=== PATIENT | female | born 1990 | race Caucasian/White ===

== ENCOUNTER → 2016-09-12 | Outpatient (CLI) | payer MEDICAID | LOC: RAD 10:26 | PROVIDERS: ATTEND Nurse Practitioner Women's Health | DX: Z34.81 Encounter for supervision of other normal pregnancy, first trimester (principal) | CPT/HCPCS: 76801 ==

== ENCOUNTER 2016-11-12 06:48 | Emergency (ER) | payer MEDICAID ==
[2016-11-12 06:59] VITALS: BP 121/67
--- NOTE | 2016-11-12 08:42 | ER Document Report ---
HPI - HPI Patient complains to provider of: pinkeye right eye yesterday Onset: Yesterday - Yesterday Onset/Duration: Gradual Pain Level: 2 Context: 26-year-old 5 months noncontact lens wearer female is complaining of red right eye since yesterday with crusty drainage this morning. She read online that a red eye could be sign of chlamydia and that's the only reason why she wants to be tested for STDs. No vaginal bleeding or discharge that has a bad smell. No abdominal pain. - CARDIOVASCULAR Cardiovascular: DENIES: Chest pain - REPRODUCTIVE Reproductive: DENIES: : - DERM Skin Color: Normal, [place] Past Medical History - Social History Smoking Status: Never Smoker Family History: None Patient has suicidal ideation: No Patient has homicidal ideation: No Renal/ Medical History: Denies: Hx Peritoneal Dialysis Surgical Hx: Negative - Immunizations Hx Diphtheria, Pertussis, Tetanus Vaccination: Yes Vertical Provider Document - CONSTITUTIONAL Agree With Documented VS: Yes Exam Limitations: No Limitations - INFECTION CONTROL TRAVEL OUTSIDE OF THE [place] IN LAST 30 DAYS: No - HEENT HEENT: Conjuctival Injection - Right, Normocephalic, PERRLA. negative: Pharyngeal Erythema, Tympanic Membrane Red Notes: No floor seen uptake, no foreign body - NECK Neck: Supple. negative: Lymphadenopathy-Left, Lymphadenopathy-Right - RESPIRATORY Respiratory: Breath Sounds Normal, No Respiratory Distress O2 Sat by Pulse Oximetry: 99 - CARDIOVASCULAR Cardiovascular: Regular Rate, Regular Rhythm - GI/ABDOMEN Gastrointestinal: Abdomen Soft, Abdomen Non-Tender Notes: Gravid uterus, heart tones 155 - MUSCULOSKELETAL/EXTREMETIES Musculoskeletal/Extremeties: YOEL BROWNING - NEURO Level of Consciousness: Awake - DERM Integumentary: Warm, Dry Course - Re-evaluation Re-evalutation: 11/12/16 09:56 - Vital Signs Vital signs: Temp Pulse Resp BP Pulse Ox 97.8 F 87 16 121/67 99 11/12/16 06:57 11/12/16 06:57 11/12/16 06:57 11/12/16 06:57 11/12/16 06:57 Discharge - Discharge Clinical Impression: right eye conjunctivitis, viable Condition: Good Disposition: HOME, SELF-CARE Instructions: Conjunctivitis ([facility]), Antibiotic Therapy ([facility]), Topical Erythromycin ([facility]) Additional Instructions: Call me at [phone] for the GC and Chlamydia test results Return to the emergency room any worsening of the symptoms See equity director if pink eye persists Please complete the patient satisfaction survey if you get one, and return it.. If you do not receive a survey, then you can go to the [facility] website, [email or web address] and place your comments about your very good care. Thank you very much. It was a pleasure being your medical provider today. Prescriptions: Erythromycin Base [Erythromycin] 1 applic OS QID #1 tub Referrals: MELODY SARGENT MD [ACTIVE STAFF] - Follow up as needed
[2016-11-12 12:21] LABS: CHLAM PCR NOT DETECTED (NOT DETECT)
== END 2016-11-12 10:31 | disposition home or self-care (01) ==
LOC: ER 06:48
DX: O26.91 Pregnancy related conditions, unspecified, first trimester (principal); H10.9 Unspecified conjunctivitis
CPT/HCPCS: 87491; 87591; 99283

== ENCOUNTER 2017-03-11 07:54 | Outpatient (CLI) | payer MEDICAID ==
[2017-03-11 09:23] LABS: APPEARANCE,URINE CLEAR; BILIRUBIN,URINE NEGATIVE (NEGATIVE); GLUCOSE, URINE NEGATIVE (NEGATIVE); KETONES,URINE NEGATIVE (NEGATIVE); LEUKOCYTE ESTERASE,URINE NEGATIVE (NEGATIVE); NITRITE,URINE NEGATIVE (NEGATIVE); PROTEIN,URINE NEGATIVE (NEGATIVE); URINE SPECIFIC GRAVITY 1.023
--- NOTE | 2017-03-11 09:36 | Non Stress Test Report ---
Non Stress Test Datetime Report Generated by CPN: 03/11/2017 09:35 DEMOGRAPHIC EGA NST: 36.4 INDICATION Indication for Study: Ordered by Provider MONITORING Monitor Explained: Monitor Explained; Test Explained; Patient Verbalized Understanding Time on Monitor: 03/11/2017 08:37 Time off Monitor: 03/11/2017 09:30 NST Duration: 53 NST INTERVENTIONS NST Interventions: PO Hydration; Reposition Patient Physician Notified NST: H. Manan, CNM BABY A: [id number] BABY A Movement : Present Contraction Frequency : Occassional FHR Baseline : 125 Accelerations : 15X15 Decelerations : None Variability : Moderate 6-25bpm NST Review: Meets Criteria for Reactive NST NST Review and Verified By : Rosa Alas RNC NST Results: Reactive NST REPORT Report Trigger: Send Report
[2017-03-11 09:38] LABS: AMNISURE (ROM) NEGATIVE (NEGATIVE)
[2017-03-11 09:44] LABS: URINE BARBITURATES SCREEN NEGATIVE; URINE METHADONE SCREEN NEGATIVE; URINE OPIATES LOW NEGATIVE; URINE PHENCYCLIDINE SCREEN NEGATIVE
== END 2017-03-11 09:57 | disposition home or self-care (01) ==
LOC: LC 07:54
PROVIDERS: ATTEND Specialist
PROC: 4A1HXCZ Monitoring of Products of Conception, Cardiac Rate, External Approach (ICD-10-PCS; principal; 2017-03-11)
DX: O47.03 False labor before 37 completed weeks of gestation, third trimester (principal); Z3A.36 36 weeks gestation of pregnancy
CPT/HCPCS: 59025; 80307; 81005; 84112

== ENCOUNTER 2017-03-26 06:47 | Inpatient (IN) | payer MEDICAID ==
[2017-03-26 07:24] LABS: AMNISURE (ROM) POSITIVE (NEGATIVE)
[2017-03-26 08:10] LABS: APPEARANCE,URINE CLEAR; BILIRUBIN,URINE NEGATIVE (NEGATIVE); GLUCOSE, URINE NEGATIVE (NEGATIVE); KETONES,URINE NEGATIVE (NEGATIVE); LEUKOCYTE ESTERASE,URINE NEGATIVE (NEGATIVE); NITRITE,URINE NEGATIVE (NEGATIVE); PROTEIN,URINE NEGATIVE (NEGATIVE); URINE SPECIFIC GRAVITY 1.006; UROBILINOGEN,URINE NEGATIVE mg/dL (<2.0)
[2017-03-26 08:40] LABS: URINE BARBITURATES SCREEN NEGATIVE; URINE METHADONE SCREEN NEGATIVE; URINE OPIATES LOW NEGATIVE; URINE PHENCYCLIDINE SCREEN NEGATIVE
[2017-03-26 08:47] LABS: ABSOLUTE EOSINOPHILS # (AUTO) 0.1 10^3/uL (0.0-0.6); ABSOLUTE LYMPHOCYTES (AUTO) 1.8 10^3/uL (0.5-4.7); ABSOLUTE MONOCYTES (AUTO) 1.1 10^3/uL (0.1-1.4); ABSOLUTE NEUT (AUTO) 8.8 10^3/uL (1.7-8.2); BASOPHILS % (AUTO) 0.4 % (0-2); EOSINOPHILS % (AUTO) 1.1 % (0-6); HEMATOCRIT 31.3 % (36.0-47.0); HEMOGLOBIN 10.2 g/dL (12.0-15.5); HGB HCT DIFFERENCE -0.7; LYMPHOCYTES % (AUTO) 15.4 % (13-45); MEAN CORPUSCULAR HEMOGLOBIN 25.9 pg (27.0-33.4); MEAN CORPUSCULAR HGB CONC 32.5 g/dL (32.0-36.0); MEAN CORPUSCULAR VOLUME 80 fl (80-97); MONOCYTES % (AUTO) 9.3 % (3-13); RED BLOOD COUNT 3.92 10^6/uL (3.72-5.28); RED CELL DISTRIBUTION WIDTH 16.2 % (11.5-14.0); SEGMENTED NEUTROPHILS % (AUTO) 73.8 % (42-78); WHITE BLOOD COUNT 11.9 10^3/uL (4.0-10.5)
[2017-03-26] MEDS ORDERED: PENICILLIN G-K 5 MILLION UNIT VIAL IV ONE (09:24)
[2017-03-26] MEDS ORDERED: PENICILLIN G-K 5 MILLION UNIT VIAL ONE ×4 (09:31→21:11)
[2017-03-26] MEDS: PENICILLIN G-K 5 MILLION UNIT VIAL IV SCH ×3 (13:39→21:16)
[2017-03-26] MEDS ORDERED: EPHEDRINE SULFATE INJ 50 MG/1 ML AMPULE IV PRN (23:26)
[2017-03-26] MEDS ORDERED: DIPHENHYDRAMINE HCL 50 MG/ML VIAL IV PRN (23:26)
[2017-03-26] MEDS ORDERED: CITRIC ACID/SODIUM CITRATE ORAL SOLN 15 ML UDCUP PO PRN (23:26)
[2017-03-26] MEDS ORDERED: BENZOIN/ALOE VERA/STORAX/TOLU TINCTURE 60 ML TP PRN (23:26)
[2017-03-26] MEDS ORDERED: FENTANYL/BUPIVACAINE/NS/PF 200 MCG/100 ML RTUINJ EPI PRN (23:26)
[2017-03-26] MEDS ORDERED: BUPIVACAINE HCL 0.25 % INJ/PF (2.5 MG/1 ML) 30 ML VIAL INFIL ONE (23:26)
[2017-03-26] MEDS ORDERED: RINGERS SOLUTION,LACTATED 1,000 ML IV PRN (23:28)
[2017-03-26] MEDS: RINGERS SOLUTION,LACTATED 1,000 ML IV PRN ×2 (23:42→23:56)
[2017-03-26] MEDS ORDERED: MISOPROSTOL 0.2 MG TABLET ONE (23:47)
[2017-03-26] MEDS ORDERED: FENTANYL/BUPIVACAINE/NS/PF 200 MCG/100 ML RTUINJ EPI ONE (23:48)
[2017-03-26] MEDS ORDERED: EPHEDRINE SULFATE INJ 50 MG/1 ML AMPULE ONE (23:48)
[2017-03-26] MEDS ORDERED: OXYTOCIN/NORMAL SALINE 20 UNIT/1,000 ML RTUINJ ONE (23:48)
[2017-03-26] MEDS ORDERED: LIDOCAINE 1% INJ-PF (10 MG/ML) 30 ML SDV ONE (23:48)
[2017-03-26] MEDS ORDERED: BUPIVACAINE HCL 0.25 % INJ/PF (2.5 MG/1 ML) 30 ML VIAL ONE (23:48)
[2017-03-27] MEDS ORDERED: PENICILLIN G-K 5 MILLION UNIT VIAL ONE (00:56)
[2017-03-27] MEDS: PENICILLIN G-K 5 MILLION UNIT VIAL IV SCH (01:28)
[2017-03-27] MEDS ORDERED: PROMETHAZINE HCL INJ 25 MG/1 ML VIAL IV PRN (03:41)
[2017-03-27] MEDS ORDERED: DIBUCAINE 1% OINTMENT 28 GM TP PRN (03:41)
[2017-03-27] MEDS ORDERED: DIPHENHYDRAMINE HCL 25 MG CAPSULE PO PRN (03:41)
[2017-03-27] MEDS ORDERED: MAGNESIUM HYDROXIDE SUSP 30 ML UDCUP PO PRN (03:41)
[2017-03-27] MEDS ORDERED: ACETAMINOPHEN WITH CODEINE #3 TABLET PO PRN ×2 (03:41)
[2017-03-27] MEDS ORDERED: OXYTOCIN/NORMAL SALINE 1,000 ML IV PRN (03:41)
[2017-03-27] MEDS ORDERED: DIPH/PERTUSS(ACELL)/TETANUS VAC/PF 0.5 ML SYR (>=10YO) IM PRN (03:41)
[2017-03-27] MEDS ORDERED: PROMETHAZINE HCL 25 MG SUPP.RECT PR PRN (03:41)
[2017-03-27] MEDS ORDERED: MEASLES,MUMPS&RUBELLA VACC/PF 0.5 ML VIAL SUBCUT PRN (03:41)
[2017-03-27] MEDS ORDERED: ACETAMINOPHEN 650 MG SUPP.RECT PR PRN (03:41)
[2017-03-27] MEDS ORDERED: GLYCERIN/WITCH HAZEL LEAF 1 EACH MED..PAD TP PRN (03:41)
[2017-03-27] MEDS ORDERED: BENZOCAINE/MENTHOL AEROSOL SPRAY 56 ML TOP PRN (03:41)
[2017-03-27] MEDS ORDERED: PROMETHAZINE HCL 25 MG TABLET PO PRN (03:41)
[2017-03-27] MEDS ORDERED: ZOLPIDEM TARTRATE 5 MG TABLET PO PRN (03:41)
[2017-03-27] MEDS ORDERED: PSEUDOEPHEDRINE HCL 30 MG TABLET PO PRN (03:41)
[2017-03-27] MEDS ORDERED: NA PHOS,M-B/NA PHOS,DI-BA (ADULT) 133 ML ENEMA PR PRN (03:41)
[2017-03-27] MEDS ORDERED: IBUPROFEN 800 MG TABLET ONE (04:38)
[2017-03-27] MEDS: IBUPROFEN 800 MG TABLET PO SCH ×3 (04:45→15:39)
--- NOTE | 2017-03-27 05:07 | Admission Physical ---
Datetime Report Generated by CPN: 03/27/2017 05:07 CURRENT ADMISSION Hx Assessment: The History has been Reviewed and is Current Chief Complaint: Suspected Ruptured Membranes Indication for Induction: Not Applicable Admit Plan: Admit to Unit; Initiate Labor Protocol ALLERGIES Medication Allergies: No Medication Allergies: No Known Allergies (03/26/2017) Medication Allergies: No Known Allergies (03/11/2017) Medication Allergies: No Known Allergies (08/09/2016) Latex: No Latex Allergies Food Allergies: None OBSTETRICAL HISTORY EDC: 04/04/2017 00:00 : 5 Para: 1 Term: 1 : 0 SAB: 4 IAB: 0 Ectopic: 0 Livin Cesareans: 0 VBACs: 0 Multiple Births: 0 Gestational Diabetes: Yes Rh Sensitization: No Incompetent Cervix: No KAMILLA: No Infertility: No Uterine Anomaly: No IUGR: No Hx Previous C/S: No Macrosomia: No Hx Loss/Stillborn: No PIH: No Hx : No Placenta Previa/Abruption: No Depression/PP Depression: No PTL/PROM: No Post Hemorrhage: No Current Procedures: Ultrasound; NST Obstetrical History Comments: G1- GDM SEE RECORDS Alcohol: No Marijuana : No Cocaine: No Other Illicit Drugs: No Cigarettes: Current Everyday Smoker. [id number] Cigarette Frequency: < 5 per day Advised to Stop: Yes Cigarette Comments: Pt stated she smokes a cigarette every 2 wks MEDICAL HISTORY Diabetes Type: Gestational Diabetes PHYSICAL EXAM General: Normal HEENT: Deferred Neurologic: Normal Thyroid: Deferred Heart: Normal Lungs: Normal Breast: Deferred Back: Normal Abdomen: Normal Genitourinary Exam: Normal Extremities: Normal DTRs: Normal Pelvic Type: Adequate Physical Exam Comments: pelvis proven to 7lbs 15oz Vital Signs: Reviewed; Within Normal Limits VAGINAL EXAM Dilatation: 3 Effacement: 60 Station: -2 Contraction Comments: irregular MEMBRANES Membranes: Ruptured FETUS A EGA: 38.5 Monitoring: External US FHR- Baseline: 115 Variability: Moderate 6-25bpm Accelerations: 15X15 Admit Comment: 26yo O pos, Rubella immune, GBS pos @ 38w5d into L_D with SROM @ 0500am and positive amnisure on admission. hx significant for anemia with this and low TSH at NOB with normal T4. Pt. was a 1ppd smoker and stopped smoking after NOB. Hx also significant for GDM with first baby. Declines any interventions except for penicillin for GBS prophy at this time. Agreeable to discuss further augment at 12-18hrs since ruptured if not in active labor. Reports positive movement, denies bleeding or recent illness. PLANS FOR LABOR AND DELIVERY Labor and Delivery: None Pain Management: None Feeding Preference: Breast Benefit of Breast Feed Discussed: Yes Circumcision: No INFORMED CONSENT Assignment: DO Cooper Jung: with User ID: Saran : with User ID: [email or web address]
[2017-03-27] MEDS: FERROUS SULFATE 325 MG TABLET PO SCH ×2 (09:18→18:10)
[2017-03-27] MEDS: DOCUSATE SODIUM 100 MG CAPSULE PO SCH ×2 (09:18→18:06)
[2017-03-27] MEDS: PRENATAL VITAMIN W-O CA NO5/FE FUMARATE/FA CAPSULE PO SCH (09:18)
[2017-03-27] MEDS: FAMOTIDINE 20 MG TABLET PO SCH ×2 (09:18→22:53)
[2017-03-27] MEDS: SENNOSIDES/DOCUSATE 8.6-50 MG 1 EACH TABLET PO SCH (09:18)
--- NOTE | 2017-03-27 09:49 | PDOC PROGRESS REPORT ---
Subjective-OB Subjective: Post Delivery Day: 26 year old. Denies any needs at this time except fatigue and lack of sleep. Physical Exam (OB) Vital Signs: Temp Pulse Resp BP Pulse Ox 98.3 F 69 17 118/54 L 100 03/27/17 07:39 03/27/17 07:39 03/27/17 07:39 03/27/17 07:39 03/27/17 05:49 Intake & Output 03/26/17 03/27/17 03/28/17 06:59 06:59 06:59 Weight 65.6 kg - PIH/Pre-Eclampsia Clonus: Negative Headache: Absent Epigastric Pain: No Visual Changes: No - Lochia Lochia Amount: Small 10-25 ml Lochia Color: Rubra/Red - Abdomen Description: Round Hernia Present: No Bowel Sounds: Normoactive Flatus Presence: Absent Stool: No Fundal Description: Firm, Midline Fundal Height: u/u - u/2 Objective-Diagnostic Laboratory: 03/26/17 08:24
--- NOTE | 2017-03-27 15:25 | Delivery Summary ---
Del Sum A-C Datetime Report Generated by CPN: 03/27/2017 15:25 DELIVERY PERSONNEL DELIVERY PERSONNEL: [phone] DELIVERY PERSONNEL: [phone] Delivery Doctor:: Jean Mendez DO Labor and Delivery Nurse:: Marina Uriarte RNshingle weaver Nurse:: VALENTINO Dorman/JITNEY DRIVER: Denisha Olivares PUPIL PERSONNEL WORKER Additional Personnel: : Millie Delgado RN MATERNAL INFORMATION Delivery Anesthesia: Epidural Medications After Delivery: Pitocin Drip 20 Units/1000ml NSS Estimated Blood Loss (ml): 250 Maternal Complications: None Provider Comments: of viable male in CONNER position Placenat delievered spontaneous and intact with 3v cord Fundus firm LABOR SUMMARY EDC: 04/04/2017 00:00 No. Babies in Womb: 1 Attempted: No Labor Anesthesia: Epidural LABOR INFORMATION Reason for Induction: Not Applicable Onset of Labor: 03/26/2017 05:00 Complete Dilatation: 03/27/2017 02:48 Oxytocin: N/A Group B Beta Strep: Positive Antibiotics # of Doses: 5 Antibiotics Time of Last Dose: 0128 Name of Antibiotic Given: PCN G Steroids Given: None Reason Steroids Not Administered: Not Applicable MEMBRANES Membranes Rupture Method: Spontaneous Rupture of Membranes: 03/26/2017 05:00 Length of Rupture (hr): 21.88 Amniotic Fluid Color: Clear Amniotic Fluid Amount: Moderate Amniotic Fluid Odor: Normal STAGES OF LABOR Stage 1 hr: 21 Stage 1 min: 48 Stage 2 hr: 0 Stage 2 min: 5 Stage 3 hr: 0 Stage 3 min: 5 Total Time in Labor hr: 21 Total Time in Labor min: 58 VAGINAL DELIVERY Episiotomy: None Laceration Extension: First Degree Laceration Type: Periurethral Other Laceration: R _ L periurethral with repair Laceration Repair: Yes Laceration Repair Note: repaired with 3-0 chromic in usual fashion with good hemostasis Sponge Count Correct: N/A Sharps Count Correct: N/A CSECTION DELIVERY Primary Indication: N/A Secondary Indication: N/A CSection Incidence: N/A Labor: Labor Elective: N/A CSection Incision: N/A BABY A INFORMATION Delivery Date/Time: 03/27/2017 02:53 Method of Delivery: Vaginal Born in Route : No : N/A Forceps: N/A Vacuum Extraction: N/A Shoulder Dystocia : No PRESENTATION/POSITION BABY A Presentation: Cephalic Presentation: Cephalic Cephalic Presentation: Vertex Vertex Position: Right Occipital Anterior Breech Presentation: N/A PLACENTA INFORMATION BABY A Placenta Delivery Time : 03/27/2017 02:58 Placenta Method of Delivery: Spontaneous Placenta Status: Delivered SCORES BABY A Heart Rate 1 min: >100 bpm Resp Effort 1 min: Good Cry Reflex Irritability 1 min: Cough or Sneeze or Pulls Away Muscle Tone 1 min: Active Motion Color 1 min: Body [place], Extremities Blue Resuscitation Effort 1 min: Tactile Stimulation SCORE 1 MIN: 9 Heart Rate 5 min: >100 bpm Resp Effort 5 min: Good Cry Reflex Irritability 5 min: Cough or Sneeze or Pulls Away Muscle Tone 5 min: Active Motion Color 5 min: Completely [place] Resuscitation Effort 5 min: N/A SCORE 5 MIN: 10 INFORMATION BABY A Gestational Age at Delivery: 38.6 Gestational Status: Early Term- 37- 38.6 Weeks Outcome : Liveborn Condition : Stable Infant Sex: Male IDENTIFICATION BABY A Infant Verification Date/Time: 03/27/2017 03:04 ID Band Number: [id number] Mother's Name Verified: Yes RN Verifying Infant: C. Sandy, RN _ S. Lattibeaudeir, RN WEIGHT/LENGTH BABY A Infant Birthweight (gm): 3250 Infant Weight (lb): 7 Weight (oz): 3 Length (in): 21.00 Length (cm): 53.34 CORD INFORMATION BABY A No. Cord Vessels: 3 Nuchal Cord : N/A Nuchal Cord- Other: Right compound hand Cord Blood Taken: Yes-For Eval (Mom's Blood Type - or O+) Suction: Mouth; Nose ASSESSMENT BABY A Complications: None Physical Findings at Delivery: Within Normal Limits Infant Respirations: Appears Normal Skin to Skin: Yes Skin to Skin Time (min): 90 Vice President Of Talent Acquisition/ALS Called : No Care By: Mariela Delgado RN _ Mavis Augustine RN Transferred To: Remains with Mother BABY B INFORMATION : N/A SIGNATURES Signature: with User ID: [email or web address]
[2017-03-28] MEDS: IBUPROFEN 800 MG TABLET PO SCH ×3 (06:07→21:35)
[2017-03-28 07:34] LABS: HEMATOCRIT 29.8 % (36.0-47.0); HEMOGLOBIN 9.9 g/dL (12.0-15.5); HGB HCT DIFFERENCE -0.1; MEAN CORPUSCULAR HEMOGLOBIN 26.5 pg (27.0-33.4); MEAN CORPUSCULAR HGB CONC 33.3 g/dL (32.0-36.0); MEAN CORPUSCULAR VOLUME 80 fl (80-97); RED BLOOD COUNT 3.75 10^6/uL (3.72-5.28); RED CELL DISTRIBUTION WIDTH 16.4 % (11.5-14.0); WHITE BLOOD COUNT 12.3 10^3/uL (4.0-10.5)
--- NOTE | 2017-03-28 09:23 | PDOC PROGRESS REPORT ---
Subjective-OB Subjective: Post Delivery Day: 26 year old. Denies any needs at this time Doing well, no c/o, thinks she is going home tonight, breast feeding, baby and hsb in room, scant bleeding Physical Exam (OB) Vital Signs: Temp Pulse Resp BP Pulse Ox 97.8 F 82 16 120/88 H 100 03/28/17 08:36 03/28/17 08:36 03/28/17 08:36 03/28/17 08:36 03/28/17 08:36 Intake & Output 03/27/17 03/28/17 03/29/17 06:59 06:59 06:59 Weight 65.6 kg - PIH/Pre-Eclampsia DTR's: 2 + Clonus: Negative Headache: Absent Epigastric Pain: No Visual Changes: No - Lochia Lochia Amount: Scant < 10 ml Lochia Color: Rubra/Red - Abdomen Description: Firm Hernia Present: No Fundal Description: Firm, Midline Fundal Height: u/u - u/2 Objective-Diagnostic Laboratory: 03/28/17 07:13 03/28/17 07:13 WBC 12.3 H RBC 3.75 Hgb 9.9 L Hct 29.8 L MCV 80 MCH 26.5 L MCHC 33.3 RDW 16.4 H Plt Count 276 Assessment and Plan(PN) - Assessment and Plan (1) Anemia Qualifiers: Anemia type: iron deficiency Is this a current diagnosis for this admission?: Yes (2) Anxiety Is this a current diagnosis for this admission?: Yes (3) Positive GBS test Is this a current diagnosis for this admission?: Yes (4) Delivery normal Is this a current diagnosis for this admission?: Yes - Time Spent with Patient Time with patient: Less than 15 minutes Medications reviewed and adjusted accordingly: Yes - Disposition Anticipated Discharge: Home Within: within 24 hours
[2017-03-28] MEDS: FERROUS SULFATE 325 MG TABLET PO SCH ×2 (10:33→18:08)
[2017-03-28] MEDS: FAMOTIDINE 20 MG TABLET PO SCH ×2 (10:34→21:35)
[2017-03-28] MEDS: PRENATAL VITAMIN W-O CA NO5/FE FUMARATE/FA CAPSULE PO SCH (10:34)
[2017-03-28] MEDS: SENNOSIDES/DOCUSATE 8.6-50 MG 1 EACH TABLET PO SCH (10:35)
[2017-03-28] MEDS: DOCUSATE SODIUM 100 MG CAPSULE PO SCH ×2 (10:36→18:08)
[2017-03-29] MEDS: IBUPROFEN 800 MG TABLET PO SCH ×2 (05:18→13:58)
[2017-03-29 08:42] VITALS: BP 107/59
[2017-03-29] MEDS: DOCUSATE SODIUM 100 MG CAPSULE PO SCH (10:57)
[2017-03-29] MEDS: FAMOTIDINE 20 MG TABLET PO SCH (10:58)
[2017-03-29] MEDS: PRENATAL VITAMIN W-O CA NO5/FE FUMARATE/FA CAPSULE PO SCH (10:58)
[2017-03-29] MEDS: SENNOSIDES/DOCUSATE 8.6-50 MG 1 EACH TABLET PO SCH (10:58)
[2017-03-29] MEDS: FERROUS SULFATE 325 MG TABLET PO SCH (10:59)
--- NOTE | 2017-03-29 11:07 | PDOC DISCHARGE SUMMARY ---
Final Diagnosis Discharge Date: 03/29/17 - Final Diagnosis (1) Delivery normal Is this a current diagnosis for this admission?: Yes Discharge Data - Discharge Medication Home Medications: Pnv Combo#47/Iron/FA #1/Dha [Zatean-Pn Dha Capsule] 1 tab PO DAILY 03/11/17 Reason(s) for Admission: Onset of Labor, Group B Strep Positive Procedures: NST Intrapartum Procedure(s): Spontaneous Vaginal Delivery Complication(s): Laceration-Periurethral Laceration-Degree: 1st - Diagnosis Test Laboratory: Temp Pulse Resp BP Pulse Ox 97.9 F 65 15 107/59 L 100 03/29/17 10:33 03/29/17 10:33 03/29/17 10:33 03/29/17 07:36 03/29/17 10:33 03/26/17 03/26/17 03/28/17 06:58 08:24 07:13 RBC 3.92 3.75 Hgb 10.2 L 9.9 L Hct 31.3 L 29.8 L Urine Opiates Screen NEGATIVE - Discharge information/Instructions Discharge Activity: Balance Activity w/Rest, Pelvic Rest Discharge Diet: Regular Disposition: HOME, SELF-CARE Follow up with: [facility] in: 4, Weeks
== END 2017-03-29 16:27 | disposition home or self-care (01) | DRG 775 ==
LOC: LC 06:47 → LR 08:03 → 2S 03-27 05:06
PROVIDERS: ADMIT Obstetrics & Gynecology; ATTEND Obstetrics & Gynecology
PROC: 10E0XZZ Delivery of Products of Conception, External Approach (ICD-10-PCS; principal; 2017-03-26)
PROC: 0UQMXZZ Repair Vulva, External Approach (ICD-10-PCS; 2017-03-26)
PROC: 4A1HXCZ Monitoring of Products of Conception, Cardiac Rate, External Approach (ICD-10-PCS; 2017-03-26)
DX: O99.824 Streptococcus B carrier state complicating childbirth (principal); O99.02 Anemia complicating childbirth; D50.9 Iron deficiency anemia, unspecified; O99.344 Other mental disorders complicating childbirth; F41.9 Anxiety disorder, unspecified; O24.429 Gestational diabetes mellitus in childbirth, unspecified control; O99.334 Smoking (tobacco) complicating childbirth; F17.210 Nicotine dependence, cigarettes, uncomplicated; O32.6XX0 Maternal care for compound presentation, not applicable or unspecified; Z3A.38 38 weeks gestation of pregnancy; Z37.0 Single live birth
CPT/HCPCS: 36415; 80307; 81005; 84112; 85025; 85027; 86592; 86850; 86900; 86901; J2540; J2590; J3490

== ENCOUNTER 2017-11-04 08:46 | Day surgery (SDC) | payer MEDICAID ==
[2017-10-29 11:36] LABS: HEMATOCRIT 44.6 % (36.0-47.0); MEAN CORPUSCULAR HEMOGLOBIN 28.8 pg (27.0-33.4); MEAN CORPUSCULAR HGB CONC 33.7 g/dL (32.0-36.0); MEAN CORPUSCULAR VOLUME 86 fl (80-97); PLATELET COUNT 352 10^3/uL (150-450); RED BLOOD COUNT 5.21 10^6/uL (3.72-5.28); RED CELL DISTRIBUTION WIDTH 13.3 % (11.5-14.0); WHITE BLOOD COUNT 7.4 10^3/uL (4.0-10.5)
[2017-10-29 11:38] LABS: APPEARANCE,URINE SLIGHTLY-CLOUDY; BILIRUBIN,URINE NEGATIVE (NEGATIVE); COLOR,URINE YELLOW; GLUCOSE, URINE NEGATIVE (NEGATIVE); KETONES,URINE NEGATIVE (NEGATIVE); LEUKOCYTE ESTERASE,URINE NEGATIVE (NEGATIVE); NITRITE,URINE NEGATIVE (NEGATIVE); PROTEIN,URINE 30 mg/dL (NEGATIVE); URINE SPECIFIC GRAVITY 1.031
[~2017-11-04 08:46] MED LIST: LACTATED RINGERS 1000 ML IV PRN; LIDOCAINE 2% INJ-PF (20 MG/ML) 2 ML AMPUL ONE; SUCCINYLCHOLINE CHLORIDE INJ 200 MG/10 ML VIAL ONE
[2017-11-04] MEDS ORDERED: FENTANYL CITRATE INJ/PF 100 MCG/2 ML AMPUL ONE (10:46)
[2017-11-04] MEDS ORDERED: MIDAZOLAM 2 MG/2 ML INJ ONE (10:46)
[2017-11-04] MEDS ORDERED: PROPOFOL INJ 200 MG/20 ML VIAL IV ONE (10:46)
[2017-11-04] MEDS ORDERED: FENTANYL CITRATE INJ/PF 100 MCG/2 ML AMPUL IV PRN ×3 (11:42)
[2017-11-04] MEDS ORDERED: MEPERIDINE HCL/PF INJ 25 MG/1 ML DISP.SYRIN IV PRN (11:42)
[2017-11-04] MEDS ORDERED: DIPHENHYDRAMINE HCL 50 MG/ML VIAL IV PRN (11:42)
[2017-11-04] MEDS ORDERED: PROMETHAZINE HCL INJ 25 MG/1 ML VIAL IV PRN (11:42)
--- NOTE | 2017-11-04 11:54 | Operative Report ---
Operative Report DATE OF SURGERY: 11/04/17 PREOPERATIVE DIAGNOSIS: Desires tubal ligation POSTOPERATIVE DIAGNOSIS: Same OPERATION: Laparoscopic tubal ligation with Filshie clips SURGEON: ALEC RASHEED ANESTHESIA: GA TISSUE REMOVED OR ALTERED: Fallopian tubes COMPLICATIONS: None ESTIMATED BLOOD LOSS: 5 cc INTRAOPERATIVE FINDINGS: Normal tubes and ovaries and uterus PROCEDURE: Patient was taken the OR and placed in supine position. General anesthesia was induced. She is placed in dorsolithotomy position using Pepe stirrups. Her perineum vagina and abdomen were prepared and draped in sterile fashion. A sponge stick was placed in the vagina for manipulation of the uterus and the bladder was drained with a red rubber catheter. An incision was made at the umbilicus and natural umbilical defect was identified and dilated with Razia clamp allowing a blunt port to be placed. Laparoscopy confirmed appropriate placement and the abdomen was insufflated with CO2 gas. Each fallopian tube was identified followed out to its fimbriated end and Filshie clip placed across the mid isthmic portion. At the end of the case the gas was allowed to escape from the abdomen. The scope and port removed in unison. The fascia at the umbilicus was closed with 2-0 Vicryl stitch and skin closed with a 4-0 undyed Vicryl stitch. She was extubated and taken recovery in stable condition.
[2017-11-04] MEDS: FENTANYL CITRATE INJ/PF 100 MCG/2 ML AMPUL ONE ×2 (12:06→12:15)
[2017-11-04] MEDS: OXYCODONE-ACETAMINOPHEN 5-325 MG TABLET PO PRN ×2 (12:40→13:20)
[2017-11-04] MEDS ORDERED: KETOROLAC TROMETHAMINE INJ/PF 30 MG/1 ML SDV ONE (12:50)
[2017-11-04] MEDS ORDERED: NALBUPHINE HCL INJ 10 MG/1 ML AMPULE IV PRN (12:57)
[2017-11-04] MEDS ORDERED: IBUPROFEN 800 MG TABLET PO PRN (12:58)
[2017-11-04] MEDS ORDERED: OXYCODONE-ACETAMINOPHEN 5-325 MG TABLET PO PRN (12:59)
[2017-11-04 15:48] VITALS: BP 141/81
== END 2017-11-04 14:20 | disposition home or self-care (01) ==
LOC: OROUT 08:46
PROVIDERS: ATTEND Obstetrics & Gynecology
PROC: 0UL74CZ Occlusion of Bilateral Fallopian Tubes with Extraluminal Device, Percutaneous Endoscopic Approach (ICD-10-PCS; principal; 2017-11-04 10:45)
DX: Z30.2 Encounter for sterilization (principal); F17.210 Nicotine dependence, cigarettes, uncomplicated
CPT/HCPCS: 36415; 81005; 81025; 85027; 851; J0330; J1885; J2250; J2704; J3010; J3490

== ENCOUNTER 2018-11-01 19:21 | Emergency (ER) | payer SELFPAY ==
[2018-11-01 19:29] VITALS: BP 122/71
[2018-11-01] MEDS ORDERED: ONDANSETRON 4 MG TAB.RAPDIS PO ONE (20:24)
[2018-11-01] MEDS ORDERED: DICYCLOMINE HCL 20 MG TABLET PO ONE (20:26)
--- NOTE | 2018-11-01 20:30 | ER Document Report ---
ED GI/ - General Chief Complaint: Nausea/Vomiting/Diarrhea Stated Complaint: VOMITING Time Seen by Provider: 11/01/18 19:59 Primary Care Provider: HELLEN MAURICIO DO [Primary Care Provider] - Follow up as needed TRAVEL OUTSIDE OF THE [place] IN LAST 30 DAYS: No - HPI Notes: 11/01/18 20:26 Patient is a 28-year-old female that presents to the emergency department for chief complaint of nausea, vomiting, diarrhea and abdominal cramping. Patient reports evening she started to feel nauseated. She had one episode of vomiting daily since . She states yesterday she started to have diarrhea and reports 2-3 loose diarrheal episodes daily. She denies any blood in her stool. She reports diffuse abdominal cramping that is relieved after bowel movement. She states she has chills but has not checked her temperature. She has not taken any medication at home for her symptoms. She denies dysuria, urinary frequency and concern for . She denies any vaginal discharge, vaginal bleeding and pelvic pain. Past Medical History: Anxiety Past Surgical History: Negative Social History: Denies drugs alcohol and tobacco, uses CBD oil occasionally Family History: Reviewed and noncontributory for presenting illness Allergies: Reviewed, see documented allergy list. REVIEW OF SYSTEMS: CONSTITUTIONAL : No fever chills No diaphoresis No recent illness EENT: No vision changes No congestion No sore throat CARDIOVASCULAR: No chest pain No palpitations RESPIRATORY: No shortness of breath No cough No difficulty breathing GASTROINTESTINAL: abdominal pain nausea vomiting diarrhea GENITOURINARY: No dysuria No hematuria No difficulty urinating MUSCULOSKELETAL: No back pain No leg pain No arm pain SKIN: No rashes No lesions LYMPHATIC: No swollen, enlarged glands. NEUROLOGICAL: No lightheadedness No headache No weakness No paresthesias PSYCHIATRIC: No anxiety No depression PHYSICAL EXAMINATION: Vital signs reviewed, nursing noted reviewed. GENERAL: Well-appearing, well-nourished and in no acute distress. HEAD: Atraumatic, normocephalic. EYES: Eyes appear normal, extraocular movements intact, sclera anicteric, conjunctiva are normal. ENT: nares patent, oropharynx clear without exudates. Mildly dry mucous membranes. NECK: Normal range of motion, supple without lymphadenopathy LUNGS: Breath sounds clear to auscultation bilaterally and equal. No wheezes rales or rhonchi. HEART: Regular rate and rhythm without murmurs ABDOMEN: Soft, nontender, hyperactive bowel sounds. No rebound, guarding, or rigidity. No masses appreciated. EXTREMITIES: Nontender, good range of motion, no pitting or edema. NEUROLOGICAL: No focal neurological deficits. Moves all extremities spontaneou sly Motor and sensory grossly intact on exam. PSYCH: Normal mood, normal affect. SKIN: Warm, Dry, normal turgor, no rashes or lesions noted on exposed skin - Related Data Allergies/Adverse Reactions: nickel Adverse Reaction (Verified 11/01/18 19:23) "Skin turns green", "itchy rash" Past Medical History - Social History Smoking Status: Never Smoker Family History: None - Past Medical History Cardiac Medical History: Denies: Hx Coronary Artery Disease, Hx Heart Attack, Hx Hypertension Pulmonary Medical History: Denies: Hx Asthma, Hx Bronchitis, Hx COPD, Hx Pneumonia Neurological Medical History: Denies: Hx Cerebrovascular Accident, Hx Seizures Renal/ Medical History: Denies: Hx Peritoneal Dialysis Musculoskeletal Medical History: Denies Hx Arthritis - Immunizations Hx Diphtheria, Pertussis, Tetanus Vaccination: Yes Physical Exam - Vital signs Vitals: Temp Pulse Resp BP Pulse Ox 98.4 F 84 18 122/71 99 11/01/18 19:27 11/01/18 19:27 11/01/18 19:27 11/01/18 19:27 11/01/18 19:27 Course - Re-evaluation Re-evalutation: 11/01/18 20:28 Vitals reviewed. Nursing notes reviewed. Patient is well-appearing, nontoxic and afebrile. Her abdominal exam is soft with no focal tenderness or peritoneal signs. I do not suspect acute appendicitis or other surgical intra-abdominal process. I did recommend urinalysis and urine which patient has declined. She states she is not concern for . She would like to be symptomatically managed which is appropriate in the setting of her stable vital signs. Patient will be given Bentyl and Zofran. She was counseled on staying well-hydrated. She will be referred to primary care for outpatient follow-up. She will return for new or worsening symptoms. - Vital Signs Vital signs: Temp Pulse Resp BP Pulse Ox 98.4 F 84 18 122/71 99 11/01/18 19:27 11/01/18 19:27 11/01/18 19:27 11/01/18 19:27 11/01/18 19:27 Discharge - Discharge Clinical Impression: Nausea vomiting and diarrhea Abdominal pain Qualifiers: Abdominal location: generalized Qualified Code(s): R10.84 - Generalized abdominal pain Condition: Stable Disposition: HOME, SELF-CARE Instructions: Gastroenteritis (adult) ([facility]) Additional Instructions: Please return to the emergency department if you have any worsening, or concern of your symptoms. Please return to the emergency department if you develop chest pain, difficulty breathing, severe abdominal pain, or ongoing vomiting. Please follow-up with your primary care physician in 2-3 days and any other recommended physicians. If prescribed, take all medications as directed. If you have any questions or concerns do not hesitate to return the emergency department for evaluation. Prescriptions: Dicyclomine HCl [Bentyl 20 mg Tablet] 20 mg PO TID #20 tablet Ondansetron [Zofran Odt 4 mg Tablet] 1 tab PO Q4H PRN #15 tab.rapdis PRN Reason: For Nausea/Vomiting Referrals: [facility] [Provider Group] - Follow up in 3-5 days
== END 2018-11-01 20:57 | disposition home or self-care (01) ==
LOC: ER 19:21
DX: R11.2 Nausea with vomiting, unspecified (principal); R19.7 Diarrhea, unspecified; R10.84 Generalized abdominal pain; R68.83 Chills (without fever)
CPT/HCPCS: 99283; J3490; S0119

== ENCOUNTER → 2019-05-02 | Outpatient (CLI) | payer SELFPAY ==
[2019-05-02 12:02] LABS: APPEARANCE,URINE CLEAR; BILIRUBIN,URINE NEGATIVE (NEGATIVE); COLOR,URINE YELLOW; GLUCOSE, URINE NEGATIVE (NEGATIVE); KETONES,URINE NEGATIVE (NEGATIVE); LEUKOCYTE ESTERASE,URINE NEGATIVE (NEGATIVE); NITRITE,URINE NEGATIVE (NEGATIVE); PROTEIN,URINE NEGATIVE (NEGATIVE); URINE SPECIFIC GRAVITY 1.023; UROBILINOGEN,URINE NEGATIVE mg/dL (<2.0)
[2019-05-02 12:11] LABS: BACTERIA (WET MOUNT) 3+ BACTERIA SEEN; EPITHELIALS (WET MOUNT) 3+ EPITHELIALS SEEN; RBCS (WET MOUNT) FEW RBCS SEEN; T.VAGINALIS (WET MOUNT) NO TRICHOMONAS SEEN; WBCS (WET MOUNT) 3+ WBCS SEEN; YEAST (WET MOUNT) NO YEAST SEEN
[2019-05-02 13:34] LABS: CHLAM PCR NOT DETECTED (NOT DETECT)
== END ==
LOC: LAB 11:35
PROVIDERS: ATTEND Nurse Practitioner Family
DX: N89.8 Other specified noninflammatory disorders of vagina (principal)
CPT/HCPCS: 81001; 87086; 87088; 87210; 87491; 87591